=== PATIENT | female | born 1960 | race Caucasian/White ===

== ENCOUNTER 2017-02-14 15:25 | Inpatient (IN) | payer MEDICARE, OTHER ==
--- NOTE | ~2017-02-14 | DS ---
Discharge Summary [facility] [address] [place]. [address] NAME: SHAISTA CALDERÓN : 60 STATUS : DIS IN PAT#: [id number] AGE: 56 ADM/REG DATE : 02/14/17 MR#: [id number] REPORT SERV DATE: 02/28/17 DICTATED BY: BRANDIN MIRANDA DATE: 02/27/17 REPORT STATUS : Draft TRANSCRIBED BY: MODAsaf DATE: 02/27/17 Data Collection from hospitalization DISCHARGE DIAGNOSES: 1. Atrial fibrillation with rapid ventricular response. 2. Remote history of hypertension-now hypotensive. 3. Type 2 diabetes mellitus. 4. Coronary artery disease. 5. Hypothyroidism. 6. Hyperlipidemia. 7. End-stage renal disease. CONSULTATIONS: Heriberto Badillo M.D. PROCEDURES: Transesophageal echocardiogram guided cardioversion on 02/17/2017. DISCHARGE MEDICATIONS: Tylenol caplet 1000 mg every six hours as needed, ProAir two puffs via inhaler every four hours as needed, Cordarone 400 mg twice a day, Symbicort two puffs via inhaler twice a day, Celexa 20 mg daily, Klonopin 1 mg at bedtime, Cardizem CD 120 mg daily, Tricor 145 mg with supper, NovoLog injection insulin 12 units subcutaneously before meals, Synthroid 200 mcg before breakfast, ProAmatine as instructed, multivitamins with minerals one tablet daily, Zantac 150 mg twice a day, Xifaxan 550 mg twice a day, Renvela 1600 mg with meals, triamcinolone cream one application topically daily as needed, Basaglar 14 units subcutaneously at bedtime, and Coumadin 2 mg at bedtime. CONDITION AT DISCHARGE: Stable. DISPOSITION: The patient was discharged home on an 1800-calorie diabetic diet with activities as instructed. She would follow up with me later this month following discharge. She would follow up with this the [facility] 02/19/2017 or 02/20/2017. HOSPITAL COURSE: This is a 56-year-old female, who is a history of coronary artery disease. The patient dialyzes on Mondays, Wednesdays, and Fridays via a left upper arm AV fistula. She had dialysis without incident on the day prior to this admission, but it should be noted that she is frequently hypotensive with dialysis treatment. She frequently receives ProAmatine at dialysis to assist with her hypotension. The night prior to this admission, she had tachycardia and some shortness of breath. This persisted throughout the day. She was admitted to the emergency department. Her heart rate was initially found to be 195 with a pressure of 102/57, with slowing of her heart rate with IV diltiazem she was found to be much less short of breath. She denied any nausea or vomiting. Upon admission, INR level was 1.2. Rate control would be a significant challenge given her baseline relative hypotension and further hypotension with ultrafiltration on dialysis. Troponin was mildly elevated at 0.51, but this was to be expected given her rapid heart rate and of known coronary artery disease in the past. The patient says that she gets no heparin with dialysis. This will make acute anticoagulation a challenge, rate control would be used and likely we would have to use amiodarone. We will check liver function tests and thyroid function studies. We would protect the left upper arm. We were going to resume her home medications. She was seen in consultation by Dr. Heriberto Badillo, regarding atrial Discharge Summary [address] [place]. [address] NAME: SHAISTA CALDERÓN : 60 STATUS : DIS IN PAT#: [id number] AGE: 56 ADM/REG DATE : 02/14/17 MR#: [id number] REPORT SERV DATE: 02/28/17 DICTATED BY: BRANDIN MIRANDA DATE: 02/27/17 REPORT STATUS : Draft TRANSCRIBED BY: NATALIA DATE: 02/27/17 fibrillation with rapid ventricular response. She had been placed on Cardizem drip which she tolerated and her heart rate was now controlled in the 80s-90s, with blood pressure limiting, now systolic in the 70-80 range. She continued to feel fatigued, but overall felt better with the lower heart rate. She had no recent symptoms of exertional angina. She denied any syncope, but did have some periods of lightheadedness and dizziness. This was felt to be a complex scenario with rapid ventricular response and hypotension underlying comorbidities, with coronary artery disease, and end-stage renal disease precludes many medication choices. It was felt the safest option now with oral amiodarone and Cardizem drip for rate control with blood pressure tolerates. We would start Coumadin to an INR level of 2-3. We would discuss the initiation of heparin for anticoagulation. The following day, her heart rate had decreased. She was feeling better. Palpitations had decreased. She had no chest pain or shortness of breath. IV calcium channel dain was going to be discontinued. Oral Cardizem continued. Amiodarone was continued at this time. The patient does have low platelets on heparin. INR level was 1.2. On 02/16/2017, she seemed to be feeling better. She had no chest pain. Her lungs were clear bilaterally. She was not going to be receiving heparin, secondary to HIT. Oral amiodarone, oral Cardizem, and oral Coumadin were continued. The patient was going to undergo transesophageal echocardiogram and DC cardioversion when INR level was greater than or equal to 2. On 02/17/2017, she had no chest pain or shortness of breath. Her lungs were clear. INR level was 2.1. Transesophageal echocardiogram guided cardioversion was performed. The patient was cardioverted with 200 joules of synchronized energy to a sinus rhythm. Discharge instructions were given. Due to her improved and stable condition, she was discharged home with the above-stated instructions. Information collected by: Gaby Hardy I submit the above information as my discharge summary. TG/MODL Brandin Miranda M.D. / [id number] CC: Petey Andino MD Allen E Atchley, M.D.
--- NOTE | ~2017-02-14 | CN ---
Consultation Report [facility] [address] [place]. [address] NAME: SHAISTA CALDERÓN : 60 STATUS : ADM IN PAT#: [id number] AGE: 56 ADM/REG DATE : 02/14/17 MR#: [id number] REPORT SERV DATE: 02/15/17 DICTATED BY: HERIBERTO RICHARDS DATE: 02/14/17 REPORT STATUS : Draft TRANSCRIBED BY: MODL DATE: 02/14/17 CARDIOLOGY CONSULT. DATE OF CONSULTATION: 02/14/2017 PRIMARY AUTOMATED ACCESS SYSTEMS TECHNICIAN: Mik Yi M.D. REASON FOR CONSULTATION: Atrial fibrillation with rapid ventricular response. HISTORY OF PRESENT ILLNESS: Ms Calderón is a 56-year-old female with known coronary artery disease and prior coronary artery bypass grafting as well as end-stage renal disease on hemodialysis, who presented to the ER with several days of feeling poorly with tachy palpitations, exertional dyspnea, and fatigue. On arrival, she was found to be in atrial fibrillation with rapid ventricular response and a heart rate of 150-160 beats per minute. Care was complicated by hypotension with a systolic blood pressure of 90. She was placed on a Cardizem drip which she has tolerated and heart rate now controlled in the 80s-90s, with blood pressure limiting, is now systolic in the 70-80 range. She continues to feel fatigued with overall feels better with a lower heart rate. She has had no recent symptoms of exertional angina. She denies syncope, but has had some periods of lightheadedness and dizziness. She has no orthopnea or PND with chronic obstructive sleep apnea and uses CPAP. No recent lower extremity edema. Of note, initial troponin was 0.5, in the setting of atrial fibrillation with rapid ventricular response and a known underlying CAD. REVIEW OF SYSTEMS: Pertinent positives and negatives are as outlined above, all others negative. PAST MEDICAL HISTORY: 1. CAD status post CABG. 2. Hypotension. 3. Diabetes mellitus type 2. 4. Hyperlipidemia. 5. End stage renal disease, on hemodialysis. 6. Chronic thrombocytopenia, mild without a history of heparin-induced thrombocytopenia. CURRENT HOME MEDICATIONS: 1. Insulin as directed. 2. Multivitamin daily. 3. Zantac 150 mg twice daily. 4. Rifaximin as directed. 5. Sevelamer 1600 mg three times daily with meals. 6. Albuterol inhaler p.r.n. 7. Symbicort inhaler as directed. 8. Celexa 20 mg daily. 9. Klonopin 1 mg q.h.s. Consultation Report [facility] [address] [place]. [address] NAME: SHAISTA CALDERÓN : 60 STATUS : ADM IN PAT#: [id number] AGE: 56 ADM/REG DATE : 02/14/17 MR#: [id number] REPORT SERV DATE: 02/15/17 DICTATED BY: HERIBERTO RICHARDS DATE: 02/14/17 REPORT STATUS : Draft TRANSCRIBED BY: MODAsaf DATE: 02/14/17 10.Tricor 145 mg daily. 11.Synthroid 200 mcg daily. ALLERGIES: INCLUDE SULFA WHICH CAUSES GI UPSET, AND CODEINE WHICH CAUSES GI UPSET. AGAIN, NO REPORTED HISTORY OF HIT WITH CHRONIC THROMBOCYTOPENIA. SOCIAL HISTORY: She does not use tobacco products, consume alcohol, or illegal drugs. FAMILY HISTORY: Significant for CAD. PHYSICAL EXAMINATION: VITALS: Temp afebrile, Pulse 85, Respirations 16, BP 78/40. GENERAL: Well-developed female, who is chronically ill appearing, but in no acute distress. HEENT: Sclerae anicteric, mucous membranes moist and without lesions. NECK: No jugular venous distention. No hepatojugular reflux, carotid upstrokes 2+ and symmetric, there are no carotid or subclavian bruit. LUNGS: Mildly decreased breath sounds throughout. No wheezes or crackles. CARDIOVASCULAR: Irregularly irregular with distant S1 and S2, no audible S3, no audible murmurs, no parasternal lift. ABDOMEN: Soft and nontender. Bowel sounds positive and normoactive. PULSES: Radial and dorsalis pedis pulses are 1+ and symmetric. EXTREMITIES: Warm. There is no edema. SKIN: No clubbing or cyanosis, no rashes or lesions. IMPRESSION: 1. Atrial fibrillation with rapid ventricular response. 2. Coronary artery disease status post coronary artery bypass graft. 3. Demand ischemia secondary to atrial fibrillation with rapid ventricular response and coronary artery disease status post coronary artery bypass graft. 4. Hypotension. 5. Diabetes mellitus type 2. 6. Hyperlipidemia. 7. End-stage renal disease, on hemodialysis. 8. Thrombocytopenia, chronic and mild. PLAN: Complex scenario with rapid ventricular response and hypotension. Underlying medical comorbidities with coronary artery disease and end-stage renal disease, precluding many medication choices. For now safest option is oral amiodarone 400 mg twice daily, and Cardizem drip for rate control as blood pressure tolerates. We will start Coumadin to an INR of 2-3. We will discuss initiation of heparin for anticoagulation. We will follow with you. AEA/MODL Consultation Report [facility] [id number] [place]. [address] NAME: SHAISTA CALDERÓN : 60 STATUS : ADM IN PAT#: [id number] AGE: 56 ADM/REG DATE : 02/14/17 MR#: [id number] REPORT SERV DATE: 02/15/17 DICTATED BY: HERIBERTO RICHARDS. DATE: 02/14/17 REPORT STATUS : Draft TRANSCRIBED BY: NATALIA DATE: 02/14/17 Heriberto Richards M.D. / [id number] CC: Petey Andino MD
--- NOTE | ~2017-02-14 | HP ---
History And Physical [facility] [address] [place]. [address] NAME: SHAISTA CALDERÓN : 60 STATUS : ADM IN [facility]#: [id number] AGE: 56 ADM/REG DATE : 02/14/17 MR#: [id number] REPORT SERV DATE: 02/15/17 DICTATED BY: TONY ZAMORANO V. DATE: 02/14/17 REPORT STATUS : Draft TRANSCRIBED BY: MODL DATE: 02/14/17 DATE OF ADMISSION: 02/14/2017 RENAL HISTORY AND PHYSICAL CHIEF COMPLAINT: Atrial fibrillation with rapid ventricular response. HISTORY OF PRESENT ILLNESS: Ms. Calderón is a 56-year-old white female with history of known coronary artery disease who dialyzes Thursday, Thursday, Thursday at the [facility] via left upper arm AV fistula on the direction of Dr. Thong Bourne. She had dialysis without incident yesterday but should be noted that she is frequently hypotensive with dialysis treatments. She frequently receives ProAmatine at dialysis to assist with her hypotension. Last night, she had tachycardia with some shortness of breath. This has persisted throughout the day, and she presented to the emergency department at [facility]. Heart rate was initially found to be 195 with a pressure of 102/57. With slowing of her heart rate with IV diltiazem, she has found much less shortness of breath. Denies any nausea or vomiting. PAST MEDICAL HISTORY: 1. ESRD. 2. Diabetes mellitus. 3. Remote history of hypertension, now hypotensive. 4. Coronary artery disease. PAST SURGICAL HISTORY: Includes coronary artery bypass grafting, left upper arm IV fistula, and fistula aneurysm resection. SOCIAL HISTORY: . No current tobacco use. FAMILY HISTORY: Noncontributory. REVIEW OF SYSTEMS: All review of systems are negative except as described above. HOME MEDICATIONS: Reviewed. dialysis. PHYSICAL EXAMINATION: VITAL SIGNS: Temperature is 97.8; heart rate initially 195, now it is 89 to 95. Blood pressure 102/57. GENERAL: She is an elderly white female. No increased work of breathing. HEENT: Pupils equal, round, and reactive to light. Sclera is anicteric. Nares are patent bilaterally. No lesions. Oropharynx clear with no lesions. Normal dentition. NECK: Trachea midline. No thyromegaly. No supraclavicular nodes. No axillary lymph nodes. CHEST: Clear to auscultation with equal bilateral breath sounds. CARDIOVASCULAR: Irregularly irregular rhythm. No rub. ABDOMEN: Soft, nondistended. Bowel sounds are physiologic. No hepatosplenomegaly noted. History And Physical [facility] [id number] [place]. [address] NAME: SHAISTA CALDERÓN : 60 STATUS : ADM IN PAT#: [id number] AGE: 56 ADM/REG DATE : 02/14/17 MR#: [id number] REPORT SERV DATE: 02/15/17 DICTATED BY: TONY ZAMORANO V. DATE: 02/14/17 REPORT STATUS : Draft TRANSCRIBED BY: MODAsaf DATE: 02/14/17 Nontender. No guarding or rebound. EXTREMITIES: No lower extremity edema. No clubbing. No cyanosis. Left upper arm AV fistula with thrill and bruit. Some degree of aneurysmal dilatation. SKIN: Warm and dry. No rash or lesions. MUSCULOSKELETAL: No musculoskeletal joint tenderness or joint effusions were noted in knees or ankles bilaterally. IMAGING: EKG reviewed by me showed atrial fibrillation with rapid ventricular response of 151 beats per minute. LABORATORY DATA: Platelet count 145, hematocrit 39.3. White blood cell count 8.2, BUN and creatinine 43 and 7.8, troponin 0.51. INR 1.2. ASSESSMENT: A 56-year-old female with end-stage renal disease with atrial fibrillation with rapid ventricular response leading to significant symptoms. Rate control will be a significant challenge given her baseline relative hypotension and further hypotension with ultrafiltration on dialysis. Troponin mildly elevated but to be expected given her rapid heart rate and known coronary artery disease in the past. The patient states she gets no heparin with dialysis. This will make acute anticoagulation a challenge, and I will discuss this with her further. She also states she saw Dr. Yi's nurse practitioner earlier this week and had a 48-hour monitor done at home. PLAN: 1. Rate control will be used, likely we will have to use amiodarone. 2. Oral anticoagulation with consideration for acute anticoagulation once her heparin situation is further delineated. 3. Check LFTs and thyroid function studies. 4. Hemodialysis Thursday, Thursday, Thursday. 5. Protect left upper arm. 6. Resume her home medications. All the above was discussed with Dr. Badillo at the patient's bedside. CP/MODL Tony Zamorano M.D. / [id number] CC: Petey Andino MD
--- NOTE | ~2017-02-14 | OP ---
Record Of Operation [facility] [address] [place]. [address] NAME: SHAISTA CALDERÓN : 60 STATUS : DIS IN PAT#: [id number] AGE: 56 ADM/REG DATE : 02/14/17 MR#: [id number] REPORT SERV DATE: 02/18/17 DICTATED BY: MIK GAUTAM DATE: 02/17/17 REPORT STATUS : Draft TRANSCRIBED BY: NATALIA DATE: 02/17/17 DATE OF PROCEDURE: TRANSESOPHAGEAL ECHOCARDIOGRAM-GUIDED CARDIOVERSION INDICATION: A 56-year-old woman with atrial fibrillation. PROCEDURE: After questions were answered, consents were signed, the patient was sedated with propofol per Anesthesia. The probe was placed in mid esophagus, and images were obtained without difficulty. At the conclusion of the procedure, the probe was withdrawn. The patient was cardioverted with 200 joules of synchronized energy to sinus rhythm. No complications were noted and the patient is recovering in the short-stay unit. 2D INTERPRETATION: The left ventricular function was severely decreased globally. The right ventricle is dilated with diffuse hypokinesis. The mitral valve opened adequately. Mild thickening is noted. The left atrium was enlarged. There was no thrombus noted in the left atrium nor the left atrial appendage. It was interrogated in multiple views, spontaneous echo contrast was noted. There was hyperdynamic motion of the interatrial septum with a morphology consistent with atrioseptal aneurysm. Small PFO was suggested by color flow. The right atrium was mildly enlarged. Tricuspid valve was grossly normal. The aortic valve was trileaflet with moderately sclerosed with restricted opening. There was no pericardial effusion noted. The descending aorta was difficult to visualize. COLOR FLOW: Mild mitral, mild tricuspid, and trace aortic insufficiency with color flow across the interatrial septum consistent with PFO. DOPPLER: Doppler flow velocities in the left atrial appendage were low and less than 20 cm/sec. CONCLUSION: 1. Severely decreased left ventricular and right ventricular function. 2. No thrombus in the left atrium nor the left atrial appendage with successful cardioversion of atrial fibrillation to sinus rhythm. 3. Sclerotic aortic valve visually with at least moderate aortic stenosis. Review transthoracic echocardiogram for correlation. MERVAT/NATALIA Mik Gautam M.D., Ph.D, F.A.C.C. / [id number] CC: Record Of Operation [address] [address] NAME: SHAISTA CALDERÓN : 60 STATUS : DIS IN PAT#: [id number] AGE: 56 ADM/REG DATE : 02/14/17 MR#: [id number] REPORT SERV DATE: 02/18/17 DICTATED BY: MIK GAUTAM DATE: 02/17/17 REPORT STATUS : Draft TRANSCRIBED BY: MODL DATE: 02/17/17 Solomon Niño M.D. Bobby Hill MD
[~2017-02-14 15:25] MED LIST: ALTA2.5 PO; ASAB PO; CELEXA20 PO; DIALYVITE PO; FOSRENOL PO; KLONO1 PO; L80 PO; LANTUS SC; LANTUSCART SC; LEVOTHROID200 MCG PO; NOVOLOG SC; NOVOPEN SC; PRILOSEC40 MG PO; RENVELA800 MG PO; TOPXL25 PO; TRICOR145 PO; XIFAXAN550 MG PO
[2017-02-14 15:48] LABS: BASOPHILS 0.5 %; BASOPHILS ABSOLUTE 0.04 10/3/uL (0.0-0.16); EOSINOPHILS 1.8 %; EOSINOPHILS ABSOLUTE 0.15 10/3/uL (0.0-0.53); ER CBC TAT 0 Hrs 08 Mins; LYMPHOCYTES 15.5 %; LYMPHOCYTES ABSOLUTE 1.27 10/3/uL (0.67-4.30); MEAN CORPUS HGB CONC 32.8 g/dL (32.0-36.0); MEAN CORPUSCULAR HEMOGLOB 32.7 pg (26.0-34.0); MEAN PLATELET VOLUME 11.7 fL (9.2-13.0); MONOCYTES 4.3 %; MONOCYTES ABSOLUTE 0.35 10/3/uL (0.21-1.20); NEUTROPHILS 77.9 %; NEUTROPHILS ABSOLUTE 6.37 10/3/uL (2.02-8.40); RBC DISTRIBUTION WIDTH 15.7 % (12.0-16.0); RED CELL COUNT 3.94 10/6/uL (4.0-5.6); WHITE BLOOD CELLS 8.2 10/3/uL (4.5-10.5)
[2017-02-14 15:49] LABS: HEMATOCRIT 39.3 % (36.0-48.0); HEMOGLOBIN 12.9 g/dL (12.0-16.0); MANUAL DIFF NO %; MEAN CORPUSCULAR VOLUME 99.7 fL (80-100); PLATELET COUNT 145 10/3/uL (150-400)
[2017-02-14 15:58] LABS: INTERNATIONAL NORMAL RATI 1.2 UNITS (-); PARTIAL THROMBO TIME 31.7 SEC (22.5-37.2); PROTIME (NOT ORD) 14.8 SEC (12.0-14.5)
[2017-02-14 16:05] LABS: BUN (BLOOD UREA NITROGEN) 43 MG/DL (6-23); CALCIUM, SERUM 9.5 MG/DL (8.5-10.4); CHLORIDE, SERUM 92 MMOL/L (96-112); CO2 (CARBON DIOXIDE) 28 MMOL/L (24-34); CREATININE 7.08 MG/DL (0.55-1.02); GFR AFRICAN AMERICAN 7 ML/MIN (>=60); GFR NON AFRICAN AMERICAN 6 ML/MIN (>=60); POTASSIUM, SERUM 4.5 MMOL/L (3.5-5.3); SODIUM, SERUM 133 MMOL/L (135-148)
[2017-02-14 16:06] LABS: CHEST PAIN PROFILE TAT 0 Hrs 26 Mins; GLUCOSE, SERUM 433 MG/DL (60-99); TROPONIN I 0.51 NG/ML (<0.05)
[2017-02-14] MEDS ORDERED: NOVOLOG SC (17:46)
[2017-02-14] MEDS ORDERED: BASAGLAR INSULIN SC (17:47)
[2017-02-14] MEDS ORDERED: CELEXA20 PO (17:47)
[2017-02-14] MEDS ORDERED: KLONO1 PO (17:47)
[2017-02-14] MEDS ORDERED: XIFAXAN550 MG PO (17:47)
[2017-02-14] MEDS ORDERED: SYNTHROID200 MCG PO (17:47)
[2017-02-14] MEDS ORDERED: SYMBICORT 160/41 INH INH (17:48)
[2017-02-14] MEDS ORDERED: ACET500CAP PO (17:48)
[2017-02-14] MEDS ORDERED: RENVELA800 MG PO (17:48)
[2017-02-14] MEDS ORDERED: PROAIR HFA INH (17:48)
[2017-02-14] MEDS ORDERED: TRIAMCINOLONE C80 GM TOP (17:48)
[2017-02-14] MEDS ORDERED: ZANTAC 150 PO (17:49)
[2017-02-14] MEDS ORDERED: MULTIVIT/MIN PO (17:49)
[2017-02-14] MEDS ORDERED: TRICOR145 PO (17:49)
[2017-02-15 05:39] LABS: BASOPHILS ABSOLUTE 0.06 10/3/uL (0.0-0.16); EOSINOPHILS 3.4 %; HEMOGLOBIN 10.7 g/dL (12.0-16.0); IMMATURE GRANULOCYTES 0.2 %; IMMATURE GRANULOCYTES ABSOLUTE 0.01 10/3/uL (0.0-0.11); LYMPHOCYTES 22.2 %; LYMPHOCYTES ABSOLUTE 1.29 10/3/uL (0.67-4.30); MEAN CORPUS HGB CONC 33.2 g/dL (32.0-36.0); MEAN CORPUSCULAR HEMOGLOB 32.9 pg (26.0-34.0); MEAN CORPUSCULAR VOLUME 99.1 fL (80-100); MEAN PLATELET VOLUME 11.3 fL (9.2-13.0); MONOCYTES 7.8 %; MONOCYTES ABSOLUTE 0.45 10/3/uL (0.21-1.20); NEUTROPHILS 65.4 %; NEUTROPHILS ABSOLUTE 3.79 10/3/uL (2.02-8.40); PLATELET COUNT 127 10/3/uL (150-400); RBC DISTRIBUTION WIDTH 15.8 % (12.0-16.0); RED CELL COUNT 3.25 10/6/uL (4.0-5.6); WHITE BLOOD CELLS 5.8 10/3/uL (4.5-10.5)
[2017-02-15 05:40] LABS: HEMATOCRIT 32.2 % (36.0-48.0)
[2017-02-15 05:41] LABS: INTERNATIONAL NORMAL RATI 1.2 UNITS (-); MANUAL DIFF NO %
[2017-02-15 06:02] LABS: ALBUMIN 3.5 G/DL (3.5-5.0); CALCIUM, SERUM 9.1 MG/DL (8.5-10.4); CHLORIDE, SERUM 99 MMOL/L (96-112); CO2 (CARBON DIOXIDE) 27 MMOL/L (24-34); FREE T4 1.21 NG/DL (0.76-1.46); PHOSPHORUS, SERUM 5.6 MG/DL (2.5-4.5); POTASSIUM, SERUM 4.6 MMOL/L (3.5-5.3); SGOT(AST) 11 U/L (5-40); SGPT(ALT) 13 U/L (5-65); SODIUM, SERUM 137 MMOL/L (135-148); TOTAL BILIRUBIN 0.6 MG/DL (0-1.2); TOTAL PROTEIN 6.6 G/DL (6.0-8.5)
[2017-02-15 06:03] LABS: A/G RATIO 1.1 (0.7-1.9); ALKALINE PHOSPHATASE 129 U/L (45-117); BUN (BLOOD UREA NITROGEN) 49 MG/DL (6-23); CREATININE 7.97 MG/DL (0.55-1.02); GFR AFRICAN AMERICAN 6 ML/MIN (>=60); GFR NON AFRICAN AMERICAN 5 ML/MIN (>=60); GLOBULIN 3.1 G/DL (2.5-4.1); GLUCOSE, SERUM 168 MG/DL (60-99)
[2017-02-16 12:35] LABS: BASOPHILS 0.6 %; BASOPHILS ABSOLUTE 0.04 10/3/uL (0.0-0.16); EOSINOPHILS 2.2 %; EOSINOPHILS ABSOLUTE 0.15 10/3/uL (0.0-0.53); IMMATURE GRANULOCYTES 0.3 %; IMMATURE GRANULOCYTES ABSOLUTE 0.02 10/3/uL (0.0-0.11); LYMPHOCYTES 11.4 %; LYMPHOCYTES ABSOLUTE 0.79 10/3/uL (0.67-4.30); MANUAL DIFF NO %; MEAN CORPUS HGB CONC 33.3 g/dL (32.0-36.0); MEAN CORPUSCULAR HEMOGLOB 32.3 pg (26.0-34.0); MEAN CORPUSCULAR VOLUME 96.8 fL (80-100); MEAN PLATELET VOLUME 11.4 fL (9.2-13.0); MONOCYTES 7.5 %; MONOCYTES ABSOLUTE 0.52 10/3/uL (0.21-1.20); NEUTROPHILS ABSOLUTE 5.42 10/3/uL (2.02-8.40); PLATELET COUNT 118 10/3/uL (150-400); RBC DISTRIBUTION WIDTH 15.7 % (12.0-16.0); RED CELL COUNT 3.41 10/6/uL (4.0-5.6); WHITE BLOOD CELLS 6.9 10/3/uL (4.5-10.5)
[2017-02-16 12:43] LABS: INTERNATIONAL NORMAL RATI 1.7 UNITS (-)
[2017-02-16 12:48] LABS: ALBUMIN 3.8 G/DL (3.5-5.0); BUN (BLOOD UREA NITROGEN) 67 MG/DL (6-23); CALCIUM, SERUM 9.7 MG/DL (8.5-10.4); CHLORIDE, SERUM 95 MMOL/L (96-112); CO2 (CARBON DIOXIDE) 24 MMOL/L (24-34); GFR AFRICAN AMERICAN 5 ML/MIN (>=60); GFR NON AFRICAN AMERICAN 4 ML/MIN (>=60); GLUCOSE, SERUM 138 MG/DL (60-99); PHOSPHORUS, SERUM 5.3 MG/DL (2.5-4.5); POTASSIUM, SERUM 5.1 MMOL/L (3.5-5.3); SODIUM, SERUM 132 MMOL/L (135-148)
[2017-02-17 06:08] LABS: BASOPHILS 0.8 %; BASOPHILS ABSOLUTE 0.05 10/3/uL (0.0-0.16); EOSINOPHILS 2.7 %; EOSINOPHILS ABSOLUTE 0.16 10/3/uL (0.0-0.53); HEMATOCRIT 34.4 % (36.0-48.0); HEMOGLOBIN 11.1 g/dL (12.0-16.0); IMMATURE GRANULOCYTES 0.2 %; IMMATURE GRANULOCYTES ABSOLUTE 0.01 10/3/uL (0.0-0.11); LYMPHOCYTES 11.2 %; LYMPHOCYTES ABSOLUTE 0.67 10/3/uL (0.67-4.30); MEAN CORPUS HGB CONC 32.3 g/dL (32.0-36.0); MEAN CORPUSCULAR HEMOGLOB 32.5 pg (26.0-34.0); MEAN PLATELET VOLUME 11.3 fL (9.2-13.0); MONOCYTES 7.8 %; MONOCYTES ABSOLUTE 0.47 10/3/uL (0.21-1.20); NEUTROPHILS 77.3 %; NEUTROPHILS ABSOLUTE 4.64 10/3/uL (2.02-8.40); PLATELET COUNT 122 10/3/uL (150-400); RBC DISTRIBUTION WIDTH 16.2 % (12.0-16.0); RED CELL COUNT 3.42 10/6/uL (4.0-5.6)
[2017-02-17 06:15] LABS: MANUAL DIFF NO %; MEAN CORPUSCULAR VOLUME 100.6 fL (80-100)
[2017-02-17 06:16] LABS: INTERNATIONAL NORMAL RATI 2.1 UNITS (-)
[2017-02-17 06:17] LABS: CALCIUM, SERUM 9.5 MG/DL (8.5-10.4); CHLORIDE, SERUM 100 MMOL/L (96-112); PHOSPHORUS, SERUM 5.5 MG/DL (2.5-4.5); POTASSIUM, SERUM 5.5 MMOL/L (3.5-5.3)
[2017-02-17 06:22] LABS: BUN (BLOOD UREA NITROGEN) 41 MG/DL (6-23); CO2 (CARBON DIOXIDE) 29 MMOL/L (24-34); CREATININE 7.45 MG/DL (0.55-1.02); GFR AFRICAN AMERICAN 6 ML/MIN (>=60); GFR NON AFRICAN AMERICAN 6 ML/MIN (>=60); GLUCOSE, SERUM 213 MG/DL (60-99); SODIUM, SERUM 139 MMOL/L (135-148)
[2017-02-17 15:43] LABS: ALBUMIN 4.2 G/DL (3.5-5.0); BUN (BLOOD UREA NITROGEN) 47 MG/DL (6-23); CALCIUM, SERUM 9.5 MG/DL (8.5-10.4); CHLORIDE, SERUM 101 MMOL/L (96-112); CO2 (CARBON DIOXIDE) 25 MMOL/L (24-34); CREATININE 8.01 MG/DL (0.55-1.02); GFR AFRICAN AMERICAN 6 ML/MIN (>=60); GFR NON AFRICAN AMERICAN 5 ML/MIN (>=60); GLUCOSE, SERUM 202 MG/DL (60-99); PHOSPHORUS, SERUM 5.3 MG/DL (2.5-4.5); POTASSIUM, SERUM 5.3 MMOL/L (3.5-5.3); SODIUM, SERUM 138 MMOL/L (135-148)
[2017-02-17] MEDS ORDERED: CORDARONE PO (17:00)
[2017-02-17] MEDS ORDERED: CARDCD120 PO (17:02)
[2017-02-17] MEDS ORDERED: C2 PO (17:06)
[2017-02-17] MEDS ORDERED: PROAMAT5 PO (17:08)
[2017-04-06] MEDS ORDERED: SYNTHROID200 MCG PO (12:51)
[2017-04-06] MEDS ORDERED: PACERONE200 MG PO (12:52)
[2017-04-06] MEDS ORDERED: KLONO1 PO (12:52)
[2017-04-06] MEDS ORDERED: COREG6 PO (12:55)
[2017-04-06] MEDS ORDERED: BASAGLAR SC (12:56)
== END 2017-02-17 18:08 | disposition home or self-care (01) | DRG 308 ==
LOC: ER 15:25 → MIC 19:59 → 2SO 02-15 15:09
PROVIDERS: Emergency Medicine; Internal Medicine Cardiovascular Disease; Internal Medicine Nephrology; Registered Nurse
PROC: 5A1D60Z (ICD-10-PCS; 2017-02-16)
PROC: B246ZZ4 Ultrasonography of Right and Left Heart, Transesophageal (ICD-10-PCS; principal; 2017-02-17)
PROC: 5A2204Z Restoration of Cardiac Rhythm, Single (ICD-10-PCS; 2017-02-17)
DX: I48.0 Paroxysmal atrial fibrillation (principal); N18.6 End stage renal disease; I12.0 Hypertensive chronic kidney disease with stage 5 chronic kidney disease or end stage renal disease; I24.8 Other forms of acute ischemic heart disease; I95.89 Other hypotension; E11.22 Type 2 diabetes mellitus with diabetic chronic kidney disease; D69.6 Thrombocytopenia, unspecified; Q21.1 Atrial septal defect; G47.33 Obstructive sleep apnea (adult) (pediatric); E03.9 Hypothyroidism, unspecified; I25.10 Atherosclerotic heart disease of native coronary artery without angina pectoris; E78.00 Pure hypercholesterolemia, unspecified; E78.5 Hyperlipidemia, unspecified; Z79.4 Long term (current) use of insulin; Z99.2 Dependence on renal dialysis; Z95.1 Presence of aortocoronary bypass graft; Z88.2 Allergy status to sulfonamides; Z88.5 Allergy status to narcotic agent; Z82.49 Family history of ischemic heart disease and other diseases of the circulatory system; Z98.890 Other specified postprocedural states; Z99.81 Dependence on supplemental oxygen
CPT/HCPCS: 71010; 80048; 80053; 80069; 82962; 83735; 84100; 84439; 84443; 84484; 85025; 85610; 85730; 87641; 92960; 93005; 93312; 93320; 93325; 94640; 96374; 96375; 99291; A9270-GY; C8929; G0257; J1160; P9047; Q9957